=== PATIENT | female | born 1995 | race Caucasian/White ===

== ENCOUNTER 2017-05-31 08:02 | Emergency (ER) | payer OTHER ==
[~2017-05-31] VITALS: Ht 165.1 cm; Wt 63.0 kg
== END 2017-05-31 09:33 | disposition home or self-care (01) ==
LOC: ER 08:02
DX: J30.89 Other allergic rhinitis (principal)

== ENCOUNTER 2017-06-26 22:11 | Emergency (ER) | payer OTHER ==
[~2017-06-26] VITALS: Ht 165.1 cm; Wt 60.8 kg
[2017-06-27] MEDS ORDERED: KETO10TA2 PO (04:30)
== END 2017-06-27 04:53 | disposition home or self-care (01) ==
LOC: ER 22:11
DX: R07.89 Other chest pain (principal); F41.8 Other specified anxiety disorders